=== PATIENT | male | born 1995 | race Caucasian/White ===

== ENCOUNTER 2019-10-15 12:43 | Emergency (ER) | payer OTHER ==
[~2019-10-15] VITALS: Ht 185.4 cm; Wt 72.6 kg
[2019-10-15] MEDS ORDERED: NORCO 5-325 TA1 EAC1 PO (13:57)
[2019-10-15] MEDS ORDERED: IBUPROFEN 800800 M1 PO (13:57)
[2019-10-15 14:41] VITALS: BP 123/72
== END 2019-10-15 14:42 | disposition home or self-care (01) ==
LOC: M.ERS 12:43
DX: S52.502A Unspecified fracture of the lower end of left radius, initial encounter for closed fracture (principal); Z88.0 Allergy status to penicillin; Z88.1 Allergy status to other antibiotic agents; W01.0XXA Fall on same level from slipping, tripping and stumbling without subsequent striking against object, initial encounter; Y93.89 Activity, other specified; Y92.89 Other specified places as the place of occurrence of the external cause; Y99.8 Other external cause status